=== PATIENT | female | born 1995 ===

== ENCOUNTER 2021-08-21 14:43 | Outpatient (CLI) | payer OTHER | END 2021-08-21 15:48 | disposition home or self-care (01) | LOC: PRENATAL 14:43 | PROVIDERS: ATTEND Obstetrics & Gynecology Maternal & Fetal Medicine | DX: O35.0XX1 Maternal care for (suspected) central nervous system malformation in fetus, fetus 1 (principal); O35.3XX1 Maternal care for (suspected) damage to fetus from viral disease in mother, fetus 1; O98.513 Other viral diseases complicating pregnancy, third trimester; O99.213 Obesity complicating pregnancy, third trimester; Z36.89 Encounter for other specified antenatal screening; Z3A.29 29 weeks gestation of pregnancy ==

== ENCOUNTER 2021-09-26 01:13 | Outpatient (CLI) | payer OTHER ==
[2021-09-26] MEDS ORDERED: PRENATAL CAPLE1 EAC1 PO (01:34)
== END 2021-09-26 11:32 | disposition home or self-care (01) ==
LOC: OBS/DEL 01:13 → LDR 05:10 → OBS/DEL 09:14
PROVIDERS: ATTEND Obstetrics & Gynecology
DX: O60.03 Preterm labor without delivery, third trimester (principal); Z3A.32 32 weeks gestation of pregnancy

== ENCOUNTER 2021-11-07 19:00 | Inpatient (IN) | payer OTHER ==
[~2021-11-07] VITALS: Ht 167.6 cm; Wt 3.2 kg
[~2021-11-07 19:00] MED LIST: PRENATAL CAPLE1 EAC1 PO
[2021-11-07] MEDS ORDERED: OSTERA TABLET1 EACH PO (19:18)
== END 2021-11-10 13:23 | disposition home or self-care (01) | DRG 788 ==
LOC: OBS/DEL 19:00 → OB/GYN 11-08 09:12 → LDR 11-08 09:12 → OBS/DEL 11-08 09:12 → OB/GYN 11-08 14:29
PROVIDERS: ADMIT Obstetrics & Gynecology; ATTEND Obstetrics & Gynecology
PROC: 4A1HXFZ Monitoring of Products of Conception, Cardiac Rhythm, External Approach (ICD-10-PCS; 2021-11-08)
PROC: 10D00Z1 Extraction of Products of Conception, Low, Open Approach (ICD-10-PCS; principal; 2021-11-08 12:00)
DX: O14.04 Mild to moderate pre-eclampsia, complicating childbirth (principal); Z53.29 Procedure and treatment not carried out because of patient's decision for other reasons; O82 Encounter for cesarean delivery without indication; Z37.0 Single live birth; Z3A.38 38 weeks gestation of pregnancy

== ENCOUNTER 2021-12-10 23:28 | Emergency (ER) | payer OTHER ==
[~2021-12-10] VITALS: Ht 167.6 cm; Wt 116.1 kg
[~2021-12-10 23:28] MED LIST changes: +OSTERA TABLET1 EACH PO
[2021-12-10] MEDS ORDERED: OSTERA TABLET1 EACH (23:39)
[2021-12-10] MEDS ORDERED: PRENATABS RX T1 EACH (23:39)
[2021-12-11] MEDS ORDERED: AMOX-CLAV 875-1 EACH PO (04:27)
== END 2021-12-11 04:42 ==
LOC: ER 23:28
DX: N61.0 Mastitis without abscess (principal)